=== PATIENT | female | born 1975 | race Caucasian/White ===

== ENCOUNTER 2018-07-19 17:26 | Inpatient (IN) | payer MEDICAID ==
[2018-07-19] MEDS ORDERED: IBUPROFEN 600 MG TAB PO (18:00)
[2018-07-19] MEDS ORDERED: BUTORPHANOL 2 MG INJ IV (18:00)
[2018-07-19] MEDS ORDERED: LIDOCAINE 1% (MPF) 30 ML INJ INJ (18:00)
[2018-07-19] MEDS ORDERED: MISOPROSTOL 200 MCG TAB PR ×2 (18:00→23:30)
[2018-07-19] MEDS ORDERED: CARBOPROST 250 MCG INJ IM ×2 (18:00→23:30)
[2018-07-19] MEDS ORDERED: OXYTOCIN 30 UNITS/LR 500 ML IV ×2 (18:00→23:30)
[2018-07-19] MEDS: LACTATED RINGER'S 1,000 ML IV (18:43)
[2018-07-19 19:12] LABS: ADD MAN DIFF? NO
[2018-07-19 19:18] LABS: WHITE BLOOD COUNT 11.3 10^3/ul (4.8-10.8)
[2018-07-19 19:18] LABS: BASOPHILS % 0.3 % (0.0-2.0); EOSINOPHILS % 0.2 % (0.0-7.0); HEMATOCRIT 39.2 % (37.0-47.0); HEMOGLOBIN 12.9 g/dl (12.0-16.0); LYMPHOCYTES % 17.6 % (15.0-51.0); MEAN CORPUSCULAR HEMOGLOBIN 30.4 pg (29.0-33.0); MEAN CORPUSCULAR HGB CONC 32.9 g/dl (32.0-37.0); MEAN CORPUSCULAR VOLUME 92.2 fl (82.0-101.0); MEAN PLATELET VOLUME 12.1 fl (7.4-10.4); MONOCYTE # 0.8 10^3/ul (0.3-0.9); MONOCYTES % 7.4 % (0.0-11.0); NEUTROPHIL # 8.4 10^3/ul (1.6-7.5); NEUTROPHILS % 73.8 % (39.0-77.0); PLATELET COUNT 212 10^3/UL (140-415); RED BLOOD COUNT 4.25 10^6/ul (4.20-5.40); RED CELL DISTRIBUTION WIDTH 14.9 % (11.5-14.5)
[2018-07-19 19:51] LABS: INR 0.92; PROTIME 12.5 Sec (11.9-14.9)
[2018-07-19 19:52] LABS: PARTIAL THROMBOPLASTIN TIME 28.6 Sec (23.0-35.0)
[2018-07-19] MEDS: OXYTOCIN 30 UNITS/LR 500 ML IV ×2 (20:28→20:30)
[2018-07-19] MEDS: METHYLERGONOVINE 0.2 MG INJ IM (20:59)
[2018-07-19] MEDS: LACTATED RINGER'S 1,000 ML IV* (23:15)
[2018-07-19] MEDS: DEXTROSE 5%-LR 1,000 ML IV (23:15)
[2018-07-19] MEDS ORDERED: DIPHENHYDRAMINE 50 MG INJ IV (23:30)
[2018-07-19] MEDS ORDERED: ACETAMINOPHEN 325 MG TAB PO (23:30)
[2018-07-19] MEDS ORDERED: ONDANSETRON 4 MG INJ IV (23:30)
[2018-07-19] MEDS ORDERED: OXYCODONE/ASPIRIN (4.88/325) TAB PO (23:30)
[2018-07-19] MEDS ORDERED: METHYLERGONOVINE 0.2 MG INJ IM (23:30)
[2018-07-19] MEDS ORDERED: SENNA/DOCUSATE NA (8.6MG/50MG) TAB PO (23:30)
[2018-07-19] MEDS ORDERED: DIBUCAINE 1% 30 GM OINT TOP (23:30)
[2018-07-19] MEDS ORDERED: ZOLPIDEM 5 MG TAB PO (23:30)
[2018-07-19] MEDS ORDERED: WITCH HAZEL/GLYCERIN PAD PR (23:30)
[2018-07-19] MEDS: IBUPROFEN 600 MG TAB PO (23:56)
[2018-07-19] MEDS: LANOLIN HPA 1 PKT TOP (23:57)
[2018-07-19] MEDS: BENZOCAINE 20% 56 ML SPRAY TOP (23:57)
[2018-07-20] MEDS: OXYTOCIN 30 UNITS/LR 500 ML IV (00:26)
[2018-07-20] MEDS: IBUPROFEN 600 MG TAB PO ×3 (06:06→17:58)
[2018-07-20] MEDS: DEXTROSE 5%-LR 1,000 ML IV ×2 (07:30→15:15)
[2018-07-20] MEDS: LACTATED RINGER'S 1,000 ML IV* ×2 (07:30→15:15)
[2018-07-20 08:06] LABS: ADD MAN DIFF? NO
[2018-07-20 08:09] LABS: BASOPHILS % 0.2 % (0.0-2.0); EOSINOPHILS % 0.3 % (0.0-7.0); HEMATOCRIT 35.1 % (37.0-47.0); HEMOGLOBIN 11.6 g/dl (12.0-16.0); LYMPHOCYTES # 1.7 10^3/ul (0.8-2.9); LYMPHOCYTES % 14.3 % (15.0-51.0); MEAN CORPUSCULAR HEMOGLOBIN 30.8 pg (29.0-33.0); MEAN CORPUSCULAR VOLUME 93.1 fl (82.0-101.0); MEAN PLATELET VOLUME 12.2 fl (7.4-10.4); MONOCYTE # 1.2 10^3/ul (0.3-0.9); NEUTROPHILS % 74.5 % (39.0-77.0); PLATELET COUNT 181 10^3/UL (140-415); RED BLOOD COUNT 3.77 10^6/ul (4.20-5.40); RED CELL DISTRIBUTION WIDTH 15.1 % (11.5-14.5)
[2018-07-20 08:09] LABS: WHITE BLOOD COUNT 12.1 10^3/ul (4.8-10.8)
[2018-07-20 09:37] LABS: HEPATITIS B SURFACE ANTIGEN NEGATIVE (NEGATIVE)
[2018-07-20 15:01] LABS: RAPID PLASMA REAGIN NONREACTIVE (NR)
[2018-07-21] MEDS: IBUPROFEN 600 MG TAB PO ×3 (00:23→12:00)
[2018-07-21] MEDS: MEASLES,MUMPS,RUBELLA VACCINE INJ SC* (09:00)
[2018-07-21] MEDS: DIPHTH/TET/ACEL PERTUSS (ADULT) 0.5 ML VIAL IM* (09:00)
== END 2018-07-21 12:20 | disposition home or self-care (01) | DRG 807 ==
LOC: OBT 17:26 → L-D 17:27 → OBT 17:53 → L-D 17:53 → PP1 22:29
PROVIDERS: Obstetrics & Gynecology
PROC: 10E0XZZ Delivery of Products of Conception, External Approach (ICD-10-PCS; principal; 2018-07-19)
DX: O80 Encounter for full-term uncomplicated delivery (principal); Z37.0 Single live birth; Z3A.39 39 weeks gestation of pregnancy
CPT/HCPCS: 85025; 85610; 85730; 86592; 86900; 86901; 87340; 99464